=== PATIENT | female | born 1935 | race Caucasian/White ===

== ENCOUNTER → 2017-08-05 | Outpatient (CLI) | payer MEDICARE, MEDICAID ==
[~2017-08-05] MED LIST: AMLO10TA2 PO; DOCU-131 PO; FOLI-17 PO; KEFLEX PO; LINA145C PO; MAGN400T7 PO; METO25TA2 PO; OMEP-110 PO; OXYB5TAB7 PO; OXYC10TA6 PO; POTA10TA11 PO; REGADENOSON 0.4 MG/5 ML SYRINGE ONE; VITAMIN B12 PO; VITAMIN B6 PO; VITAMIND3 PO; ZBEC PO
== END | disposition home or self-care (01) ==
LOC: RAD 10:57
PROVIDERS: ATTEND Internal Medicine Cardiovascular Disease
DX: Z01.810 Encounter for preprocedural cardiovascular examination (principal); I25.89 Other forms of chronic ischemic heart disease
CPT/HCPCS: 78452; 93017; A9502; C9898; J2785